=== PATIENT | female | born 1950 | race Caucasian/White ===

== ENCOUNTER 2024-09-27 16:11 | Inpatient (IN) | payer MEDICARE, OTHER ==
[~2024-09-27] VITALS: Ht 165.1 cm; Wt 102.1 kg
[2024-09-27] MEDS ORDERED: DAPA10TA PO (17:05)
[2024-09-27] MEDS ORDERED: LOSA100T31 PO (17:05)
[2024-09-27] MEDS ORDERED: INSU100V7 SQ (17:05)
[2024-09-27] MEDS ORDERED: GLIP10TA11 PO (17:05)
[2024-09-27] MEDS ORDERED: METF-442 PO (17:05)
[2024-09-27] MEDS ORDERED: CHOL3000 PO (17:05)
[2024-09-27] MEDS ORDERED: GEMF600T90 PO (17:05)
[2024-09-27] MEDS ORDERED: ACET325T53 PO (17:05)
[2024-09-27] MEDS ORDERED: OMEP20CA15 PO (17:05)
[2024-09-27] MEDS ORDERED: GABA-532 PO (17:05)
[2024-09-27] MEDS ORDERED: DOCU100C36 PO (17:05)
[2024-09-27] MEDS ORDERED: GLUC1KIT IM (17:05)
[2024-09-27] MEDS ORDERED: OXIC30CR3 TP (17:05)
[2024-09-27 17:17] LABS: PLATELET COUNT (AUTO) 404 K/uL (179-408); RED BLOOD CELL COUNT(AUTO) 4.85 MIL/uL (3.63-4.92); RED CELL DISTRIBUTION WIDTH 16.5 % (12.3-17.7); WHITE BLOOD COUNT (AUTO) 11.9 K/uL (3.8-11.8)
[2024-09-27 17:26] LABS: *BILIRUBIN,URIN NEGATIVE (NEGATIVE); *BLOOD, URINE NEGATIVE (NEGATIVE); *CLARITY,URINE CLEAR (CLEAR); *COLOR,URINE YELLOW (YELLOW); *KETONES,URINE NEGATIVE (NEGATIVE); *PROTEIN,URINE NEGATIVE (NEGATIVE); *UROBILINOGEN,URINE 0.2 E.U./dl (NORMAL); LEUKOCYTE ESTERASE ,URINE NEGATIVE (NEGATIVE); NITRITE, URINE NEGATIVE (NEGATIVE)
[2024-09-27 17:29] LABS: CREATININE 0.8 mg/dL (0.6-1.3); SODIUM SERUM 132 mmol/L (136-145); UREA NITROGEN, BLOOD 26 mg/dL (7-18)
[2024-09-27 17:31] LABS: UGLUCOSE 3+ (NEGATIVE)
[2024-09-27 17:35] LABS: ASPARTATE AMINOTRANSFERASE 12 U/L (15-37); LACTIC ACID 2.0 mmol/L (0.4-2.0); TOTAL PROTEIN, SERUM 7.6 g/dL (6.4-8.2)
[2024-09-27 17:40] LABS: SQUAMOUS EPITHELIAL CELL,UR FEW /HPF (NONE SEEN)
[2024-09-27] MEDS: IV NORMAL SALINE 1000 ML BAG IV ONE (18:46)
[2024-09-27] MEDS ORDERED: MAGNESIUM HYDROXIDE 30 ML LIQUID UDC PO PRN (20:15)
[2024-09-27] MEDS ORDERED: ONDANSETRON 4 MG/2 ML VIAL IV PRN (20:15)
[2024-09-27] MEDS ORDERED: METFORMIN HCL 500 MG TABLET PO SCH (20:15)
[2024-09-27 21:16] VITALS: BP 60/63
[2024-09-27 22:30] VITALS: BP 141/54; TEMP 97.8; O2SAT 95
[2024-09-27] MEDS: GEMFIBROZIL 600 MG TABLET PO SCH (23:07)
[2024-09-27] MEDS: GABAPENTIN 100 MG CAPSULE PO SCH (23:07)
[2024-09-27] MEDS: NITROFURANTOIN/NITROFURAN MAC 100 MG CAPSULE PO SCH (23:07)
[2024-09-27] MEDS: DOCUSATE SODIUM 100 MG CAPSULE PO SCH (23:07)
[2024-09-27] MEDS: ENOXAPARIN SODIUM 40 MG/0.4 ML DISP.SYRIN SQ SCH (23:08)
[2024-09-28] MEDS: IV NS 1000 ML 1,000 ML IV PRN (04:38)
[2024-09-28] MEDS: PANTOPRAZOLE SODIUM 40 MG TABLET.DR PO SCH (06:14)
[2024-09-28 06:31] VITALS: BP 133/56; TEMP 97.6; O2SAT 95
[2024-09-28 07:12] LABS: PLATELET COUNT (AUTO) 383 K/uL (179-408); RED BLOOD CELL COUNT(AUTO) 4.70 MIL/uL (3.63-4.92); RED CELL DISTRIBUTION WIDTH 16.3 % (12.3-17.7); WHITE BLOOD COUNT (AUTO) 11.5 K/uL (3.8-11.8)
[2024-09-28 07:34] LABS: CREATININE 0.5 mg/dL (0.6-1.3); SODIUM SERUM 136 mmol/L (136-145); UREA NITROGEN, BLOOD 19 mg/dL (7-18)
[2024-09-28] MEDS: METFORMIN HCL 500 MG TABLET PO SCH (08:12)
[2024-09-28] MEDS: LOSARTAN POTASSIUM 50 MG TABLET PO SCH (08:13)
[2024-09-28] MEDS: DAPAGLIFLOZIN PROPANEDIOL 10 MG TABLET PO SCH (08:15)
[2024-09-28] MEDS ORDERED: CHOLECALCIFEROL 1,000 UNIT TABLET PO SCH (09:00)
[2024-09-28] MEDS: CHOLECALCIFEROL 1,000 UNIT TABLET PO SCH (10:23)
[2024-09-28 10:51] VITALS: BP 138/63; TEMP 97.7; O2SAT 96
[2024-09-28 15:39] VITALS: BP 146/74; TEMP 98; O2SAT 94
[2024-09-28 19:15] VITALS: BP 143/65; TEMP 97.6; O2SAT 95
[2024-09-28] MEDS: ACETAMINOPHEN 325 MG TABLET PO PRN (20:03)
[2024-09-29 05:37] VITALS: BP 147/53; TEMP 97.7; O2SAT 95
[2024-09-29 10:49] VITALS: BP 168/65; TEMP 97.5; O2SAT 96
[2024-09-29] MEDS: VANCOMYCIN HCL 1,500 MG in IV DEXTROSE 5% 500 ML IV SCH (14:15)
[2024-09-29 15:31] VITALS: BP 115/64; TEMP 97.8; O2SAT 97
[2024-09-29 19:15] VITALS: BP 132/50; TEMP 98.2; O2SAT 93
[2024-09-30 02:02] VITALS: O2SAT 96
[2024-09-30 05:39] VITALS: BP 136/56; TEMP 98; O2SAT 93
[2024-09-30 07:05] LABS: PLATELET COUNT (AUTO) 331 K/uL (179-408); RED BLOOD CELL COUNT(AUTO) 4.50 MIL/uL (3.63-4.92); RED CELL DISTRIBUTION WIDTH 16.5 % (12.3-17.7); WHITE BLOOD COUNT (AUTO) 13.2 K/uL (3.8-11.8)
[2024-09-30 07:19] LABS: CREATININE 0.6 mg/dL (0.6-1.3); SODIUM SERUM 131 mmol/L (136-145); UREA NITROGEN, BLOOD 17 mg/dL (7-18)
[2024-09-30 11:06] VITALS: BP 146/69; TEMP 97.7; O2SAT 94
[2024-09-30 15:30] VITALS: BP 148/60; TEMP 97.6; O2SAT 97
[2024-09-30 16:00] VITALS: O2SAT 97
[2024-09-30 21:58] VITALS: BP 154/56; TEMP 98.3; O2SAT 93
[2024-10-01 05:37] VITALS: O2SAT 97
[2024-10-01 06:13] VITALS: BP 119/60; TEMP 97.6; O2SAT 95
[2024-10-01 11:10] LABS: CREATININE 0.6 mg/dL (0.6-1.3); SODIUM SERUM 130 mmol/L (136-145); UREA NITROGEN, BLOOD 17 mg/dL (7-18)
[2024-10-01 11:34] VITALS: BP 132/55; TEMP 98.1; O2SAT 94
[2024-10-01] MEDS: VANCOMYCIN IV 1,250 MG in IV DEXTROSE 5% 250 ML IV SCH (12:36)
[2024-10-01 15:57] VITALS: BP 142/67; TEMP 98; O2SAT 93
[2024-10-01 16:30] VITALS: O2SAT 95
[2024-10-01 18:12] LABS: *SODIUM RNDM,URINE 35 mmol/L (40-220)
[2024-10-01 19:23] VITALS: BP 143/75; TEMP 98; O2SAT 92
[2024-10-02 05:10] VITALS: O2SAT 95
[2024-10-02 06:00] VITALS: BP 125/74; TEMP 97.9; O2SAT 93
[2024-10-02 07:31] LABS: CREATININE 0.6 mg/dL (0.6-1.3); SODIUM SERUM 134 mmol/L (136-145); UREA NITROGEN, BLOOD 17 mg/dL (7-18)
[2024-10-02 11:30] VITALS: BP 157/61; TEMP 98; O2SAT 93
[2024-10-02 12:48] VITALS: BP 168/76
== END 2024-10-02 13:14 | DRG 690 ==
LOC: ER 16:22 → MEDSURG3 18:30 → UNDOADMIN 18:30 → TELE3 18:30
PROVIDERS: ADMIT Nurse Practitioner Acute Care; ATTEND Nurse Practitioner Acute Care
PROC: 05HB33Z Insertion of Infusion Device into Right Basilic Vein, Percutaneous Approach (ICD-10-PCS; principal; 2024-09-30)
DX: N12 Tubulo-interstitial nephritis, not specified as acute or chronic (principal); E44.1 Mild protein-calorie malnutrition; D68.59 Other primary thrombophilia; E87.1 Hypo-osmolality and hyponatremia; E11.42 Type 2 diabetes mellitus with diabetic polyneuropathy; K21.9 Gastro-esophageal reflux disease without esophagitis; E66.01 Morbid (severe) obesity due to excess calories; I10 Essential (primary) hypertension; G20.A1 Parkinson's disease without dyskinesia, without mention of fluctuations; F02.80 Dementia in other diseases classified elsewhere, unspecified severity, without behavioral disturbance, psychotic disturbance, mood disturbance, and anxiety; B96.89 Other specified bacterial agents as the cause of diseases classified elsewhere; E78.5 Hyperlipidemia, unspecified; Z74.01 Bed confinement status; Z88.5 Allergy status to narcotic agent; Z68.37 Body mass index [BMI] 37.0-37.9, adult; Z88.0 Allergy status to penicillin; Z88.1 Allergy status to other antibiotic agents; Z79.84 Long term (current) use of oral hypoglycemic drugs; Z79.4 Long term (current) use of insulin
CPT/HCPCS: 36415; 71045; 83605; 83735; 84100; 84300; 84443; 84484; 84550; 85025; 85730; 87040; 87086; 97535-GO-CO; G0378; J1650; J1956; J3374; J7040; J7050; J7060